=== PATIENT | female | born 1985 | race Caucasian/White ===

== ENCOUNTER 2019-11-15 16:54 | Observation (INO) ==
[2019-11-15] MEDS ORDERED: ACETAMINOPHEN 325 MG TABLET PO PRN (19:42)
[2019-11-15 20:11] LABS: Basophils % 0.3 % (0.0-0.8); Eosinophils % 0.3 % (0.00-10.9); Hematocrit 40.5 VOL% (35.7-47.0); Hemoglobin 13.4 GM/DL (12.0-16.0); Immature Granulocytes % 0.3 %; Immature Granulocytes Absolute 0.02 #; Lymphocytes # 1.4 10*3/uL (1.4-4.0); Lymphocytes % 19.4 % (21.3-54.2); Mean Corpuscular HGB Conc 33.1 GM/DL (32-36); Mean Corpuscular Volume 92.7 FL (87-102); Mean Platelet Volume 9.8 FL (9.6-12.0); Monocytes % 9.3 % (1.7-12.7); Neutrophils % 70.4 % (38.7-73.9); Platelet Count 262 T/CUMM (130-400); Red Blood Count 4.37 MC/CUMM (3.8-5.5); Red Cell Distribution Width 13.2 % (9.3-17.3); White Blood Count 7.2 T/CUMM (4-12)
[2019-11-15 20:41] LABS: Alanine Aminotransferase 27 U/L (13-56); Albumin 3.3 G/DL (3.4-5.0); Alkaline Phosphatase 87 U/L (45-117); Aspartate Amino Transferase 27 U/L (0-37); Bilirubin,Total < 0.39 MG/DL (0.2-1.0); Blood Urea Nitrogen 9 MG/DL (7-18); Calcium 9.5 MG/DL (8.5-10.1); Estimated Glom Filtration Rate 72 ML/MIN; Glucose 113 MG/DL (74-106); Osmolality,Calculated 267.2 MOS/KG (273-304); Total Protein 8.1 G/DL (6.4-8.3)
[2019-11-15] MEDS: ceFAZolin 2,000 MG in PREMIX 1 EACH IV SCH (21:03)
[2019-11-15] MEDS: lisinopriL 20 MG TABLET PO SCH (21:04)
[2019-11-15] MEDS: ZALEPLON 5 MG CAPSULE PO PRN (23:12)
[2019-11-16] MEDS: ceFAZolin 2,000 MG in PREMIX 1 EACH IV SCH ×3 (03:04→22:01)
[2019-11-16] MEDS: lisinopriL 20 MG TABLET PO SCH (09:05)
[2019-11-16] MEDS ORDERED: HYDROCORTISONE 1% CREAM 28 GM TUBE TOP PRN (15:00)
[2019-11-16] MEDS ORDERED: NAPROXEN 500 MG TABLET PO PRN (19:08)
[2019-11-16] MEDS: ZALEPLON 5 MG CAPSULE PO PRN (22:06)
[2019-11-17] MEDS: ceFAZolin 2,000 MG in PREMIX 1 EACH IV SCH ×2 (06:07→11:42)
[2019-11-17] MEDS ORDERED: FLUCONAZOLE 100 MG TABLET PO SCH (09:30)
[2019-11-17] MEDS: lisinopriL 20 MG TABLET PO SCH (09:44)
[2019-11-17 11:33] VITALS: BP 115/80
[2019-11-17] MEDS ORDERED: cephALEXin 500 MG CAPSULE PO SCH (12:00)
== END 2019-11-17 13:13 | disposition home or self-care (01) ==
LOC: N.3E
PROVIDERS: ADMIT Obstetrics & Gynecology; ATTEND Obstetrics & Gynecology